=== PATIENT | male | born 1960 | race Caucasian/White ===

== ENCOUNTER 2016-12-28 21:11 | Inpatient (IN) | payer BC, OTHER ==
[~2016-12-28] VITALS: Ht 182.9 cm; Wt 123.8 kg
--- NOTE | 2016-12-28 21:35 | NUR ---
PT PRESENTED TO THE ER WITH A C/O RLE EDEMA, PAIN ,REDNESS X 1WK. PT STATED THAT HE WENT TO HIS PMD 1 WK AGO AND HE GAVE HIM SOME PILLS. PT WAS NOT ABLE TO TELL ME THE NAME OF THE MEDICATION. PT STATED THAT THE WOUND BECAME WORSE 2 DAYS AGO. PT HAS DM TYPE2 AND IS ON METFORMIN. PT IS AA&O X4. PT IS AMBULATORY WITH A SLOW STEADY GAIT. PT'S LEG WOUND IS BANDAGED AND WEEPING. CLEAR DRAINAGE NOTED. PT WAS PLACED ON THE MONITOR AND CONTINOUS PULSE OX.
[2016-12-28] MEDS ORDERED: VANCOMYCIN 1 GM VIAL ONE (22:11)
[2016-12-28] MEDS ORDERED: IV SET PRIMARY PUMP SET 1 EA INFUS.SET MC ONE (22:11)
[2016-12-28] MEDS ORDERED: IV NS 0.9% 250 ML IV ONE (22:11)
--- NOTE | 2016-12-28 22:23 | NUR ---
CALLED NURSING SUP. FOR MS BED
--- NOTE | 2016-12-28 22:27 | NUR ---
PT GOING TO [facility] BED 311-1
[2016-12-28] MEDS ORDERED: VANCOMYCIN 1 GM in IV D5W 250 ML IV ONE (22:30)
[2016-12-28 22:37] LABS: CALCIUM, SERUM 8.4 mg/dL (8.5-10.1); CARBON DIOXIDE 27 mmol/L (21-32); CHLORIDE 102 mmol/L (98-107); CREATININE 1.2 mg/dL (0.6-1.3); GFR 62 mL/min (>60); GLUCOSE 194 mg/dL (74-106); POTASSIUM 3.4 mmol/L (3.5-5.1); SODIUM SERUM 140 mmol/L (136-145); UREA NITROGEN, BLOOD 11 mg/dL (7-18)
[2016-12-28 22:40] VITALS: BP 142/85
[2016-12-28 22:41] LABS: INR 0.93 (0.87-1.13); PROTHROMBIN TIME 9.9 SECS (9.5-12.7)
[2016-12-28 22:47] LABS: BASOPHILS % (AUTO) 0.4 % (0.0-2.0); EOSINOPHILS # (AUTO) 0.6 /CMM (0.0-0.7); HEMATOCRIT 41 % (39-51); HEMOGLOBIN 13.9 g/dL (13.5-17.5); LYMPHOCYTES # (AUTO) 2.8 /CMM (0.8-4.8); LYMPHOCYTES % (AUTO) 26.2 % (20.0-44.0); MEAN CORPUSCULAR HEMOGLOBIN 29 PG (26.0-33.0); MEAN CORPUSCULAR HGB CONC 34 g/dl (31.0-36.0); MEAN CORPUSCULAR VOLUME 84 fL (80-96); MONOCYTES # (AUTO) 0.6 /CMM (0.1-1.30); MONOCYTES % (AUTO) 5.6 % (2.0-12.0); NEUTROPHILS # (AUTO) 6.5 /CMM (1.8-8.9); NEUTROPHILS % (AUTO) 61.8 % (43.0-81.0); PLATELET COUNT (AUTO) 271 /CMM (150-450); RDW COEFFICIENT OF VARIATION 13.5 (11.5-15.0); RED BLOOD CELL COUNT(AUTO) 4.85 MIL/uL (4.5-6.0); WHITE BLOOD COUNT (AUTO) 10.6 K/uL (4.3-11.0)
[2016-12-28 22:49] LABS: LACTIC ACID 2.4 mmol/L (0.4-2.0)
--- NOTE | 2016-12-28 23:01 | NUR ---
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
[2016-12-28] MEDS ORDERED: MORPHINE SULFATE INJ 4 MG/ML DISP.SYRIN ONE (23:15)
[2016-12-28] MEDS ORDERED: ONDANSETRON HCL/PF 4 MG/2 ML VIAL ONE (23:15)
--- NOTE | 2016-12-28 23:17 | NUR ---
PT STATED THAT HIS PAIN WAS A 7-8/10. NEW ORDERS GIVEN BY DR. JANG.
[2016-12-28] MEDS ORDERED: ASPI81TA2 PO (23:21)
[2016-12-28] MEDS ORDERED: METF850T2 PO (23:21)
[2016-12-28] MEDS ORDERED: GABA-532 PO (23:26)
[2016-12-28] MEDS ORDERED: LOSA1TAB36 PO (23:26)
[2016-12-28 23:35] VITALS: BP 142/85
--- NOTE | 2016-12-28 23:35 | NUR ---
RN NOTES RECEIVED PT FROM ER WITH DX. CELLULITIS, A/OX4, NEPHEW AT BEDSIDE, ADMISSION INSTRUCTIONS WAS GIVEN, CALL LIGHT WITHIN ERACH, SIDERAILS UPX2 WILL CONTINUE TO MONITOR
[2016-12-29 00:50] LABS: BILIRUBIN,DIRECT 0.1 mg/dL (0.0-0.2); BILIRUBIN,TOTAL 0.5 mg/dL (0.2-1.0)
[2016-12-29 00:54] LABS: LACTIC ACID REFLEX 1.4 mmol/L (0.4-1.9)
[2016-12-29] MEDS ORDERED: MORPHINE SULFATE INJ 2 MG/ML DISP.SYRIN IV PRN (01:00)
[2016-12-29] MEDS ORDERED: MAG HYDROX/AL HYDROX/SIMETH 30 ML UDC PO PRN (01:00)
[2016-12-29] MEDS ORDERED: ONDANSETRON HCL/PF 4 MG/2 ML VIAL IVP PRN (01:00)
[2016-12-29] MEDS ORDERED: ZOLPIDEM TARTRATE 5 MG TABLET PO PRN (01:00)
[2016-12-29] MEDS ORDERED: HYDROCODONE/APAP 5/325MG 1 EACH TABLET PO PRN (01:00)
[2016-12-29] MEDS ORDERED: MAGNESIUM HYDROXIDE 30 ML UDC PO PRN (01:00)
[2016-12-29] MEDS ORDERED: ACETAMINOPHEN 325 MG TABLET PO PRN (01:00)
[2016-12-29] MEDS ORDERED: Z GUARD REMEDY 2 OZ OINT TP PRN (01:00)
[2016-12-29] MEDS ORDERED: VANCOMYCIN 1 GM VIAL ONE (04:24)
[2016-12-29] MEDS ORDERED: IV D5W 500 ML IV ONE (04:25)
[2016-12-29] MEDS ORDERED: IV NS 0.9% 250 ML IV ONE ×2 (04:59→07:05)
[2016-12-29] MEDS ORDERED: IV SET PRIMARY PUMP SET 1 EA INFUS.SET MC ONE (04:59)
[2016-12-29] MEDS ORDERED: VANCOMYCIN 1.25 GM in IV D5W 500 ML IV SCH ×2 (05:00→17:00)
--- NOTE | 2016-12-29 06:35 | NUR ---
RN NOTES AWAKE, MORNING CARE RENDERED, CALL LIGHT WITHIN REACH, SIDERAILS UPX2 PT. NEEDS ATTENDED
[2016-12-29] MEDS ORDERED: FEE PK DOSING 1 MIN EA MC ONE (07:06)
--- NOTE | 2016-12-29 07:15 | NUR ---
RN MS NOTES PATIENT IN BED, ASLEEP BUT EASILY AROUSABLE, DENIES PAIN OR DISCOMFORT AT THIS TIME, IV ATB INFUSING AND TOLERATING WELL, NEEDS ATTENDED AND MET, NO S/SX OF DISTRESS NOTED, SAFETY MEASURES IN PLACED, CALL LIGHT WITHIN REACH, WILL CONTINUE TO MONITOR.
[2016-12-29] MEDS ORDERED: PANTOPRAZOLE 40 MG TABLET.DR PO SCH (07:30)
[2016-12-29 08:00] VITALS: BP 108/73
[2016-12-29] MEDS ORDERED: ALBU18HF2 IH (08:24)
[2016-12-29] MEDS ORDERED: OMEG500C PO (08:24)
--- NOTE | 2016-12-29 10:09 | NUR ---
WOUND CARE CONSULT: PATIENT SEEN AND SKIN ASSESSMENT DONE. PATIENT ALERT, ORIENTED, INDEPENDENT WITH BED MOBILITY, AMBULATORY, IVETH 18, CONTINENT. SEE TODAY'S SKIN ASSESSMENT IN PCS ALONG WITH ALL RECOMMENDATIONS DISCUSSED WITH NURSING STAFF. MD IN AGREEMENT WITH PLAN OF CARE. Addendum: 12/29/16 at 1010 by JUAN C KERR WNDNU Amended: Links added.
[2016-12-29] MEDS ORDERED: CEPH-570 PO (10:22)
[2016-12-29] MEDS ORDERED: SULF1TAB48 PO (10:22)
--- NOTE | 2016-12-29 10:30 | NUR ---
RN MS NOTES PATIENT IN BED, FAMILY AT BEDSIDE, SEEN AND EXAMINED BY DR. PHAM, RECEIVED NEW ORDER FOR DISCHARGE AFTER LEVAQUIN DOSE TONIGHT, PATIENT AND FAMILY AWARE. PATIENT IN STABLE CONDITION, WOUND TREATMENT RENDERED, WILL CONTINUE TO MONITOR.
[2016-12-29] MEDS ORDERED: ASPIRIN 81 MG TAB.CHEW PO SCH (11:30)
[2016-12-29] MEDS ORDERED: LOSARTAN/HCTZ 50-12.5MG/ 1 EA TABLET PO SCH (11:31)
[2016-12-29] MEDS ORDERED: SECONDARY IV SET 1 EA INFUS.SET MC ONE (11:43)
[2016-12-29] MEDS: UREA 10% -AHA 4% CREAM 57 GM TUBE TP SCH ×2 (11:51→16:48)
[2016-12-29] MEDS ORDERED: PIPERACILLIN /TAZOBACTAM 3.375 G in IV D5W 50 ML IV SCH (12:00)
[2016-12-29] MEDS: GABAPENTIN 100 MG CAPSULE PO SCH ×2 (13:02→16:48)
[2016-12-29 16:00] VITALS: BP 114/76
[2016-12-29 16:05] VITALS: BP 114/76
[2016-12-29] MEDS ORDERED: METFORMIN 850 MG TABLET PO SCH (17:00)
--- NOTE | 2016-12-29 17:45 | NUR ---
RN MS NOTES IV VANCO INFUSING AND TOLERATING WELL, PATIENT IS IN STABLE CONDITION, RIGHT LEG ELEVATED, DENIES PAIN OR DISCOMFORT AT THIS TIME, ALL DUE MEDS GIVEN ORDERED, PATIENT RECEIVED DISCHARGE INSTRUCTIONS AND VERBALIZED UNDERSTANDING, PRESCRIPTION PROVIDED FOR TWO ORAL ANTIBIOTICS AND NORCO, EDUCATION PROVIDED, VALUABLE FORM SIGNED, SKIN ASSESSMENT DONE, PHOTOS FROM LAST NIGHT STILL VALID, NO CHANGES, CURRENTLY WAITING FOR IV ATB TO BE COMPLETED PRIOR TO DISCHARGE, WILL CONTINUE TO MONITOR.
--- NOTE | 2016-12-29 18:33 | NUR ---
RN MS NOTES PIV ON LEFT HAND REMOVED, SECURED WITH TAPE AND GAUZE TO MINIMIZE BLEEDING, PATIENT LEFT THE FACILITY IN STABLE CONDITION AT 1833 ACCOMPANIED BY SISTER.
== END 2016-12-29 18:35 | disposition home or self-care (01) | DRG 383 ==
LOC: ER 21:13 → MED 23:08
PROVIDERS: ADMIT Internal Medicine; ATTEND Internal Medicine
DX: L03.115 Cellulitis of right lower limb (principal); E11.40 Type 2 diabetes mellitus with diabetic neuropathy, unspecified; I10 Essential (primary) hypertension; Z79.84 Long term (current) use of oral hypoglycemic drugs; F17.210 Nicotine dependence, cigarettes, uncomplicated
CPT/HCPCS: 36415; 80048-TC; 82247-TC; 82248-TC; 82962-TC; 83605-TC; 85025-TC; 85730-TC; 87040-TC; 87081-TC; A4606; J2270; J2405; J2543; J3370; J7050; J7060; Z7610

== ENCOUNTER 2017-04-11 20:17 | Inpatient (IN) | payer OTHER ==
[~2017-04-11] VITALS: Ht 185.4 cm; Wt 81.6 kg
[~2017-04-11 20:17] MED LIST: ALBU18HF2 IH; ASPI81TA2 PO; CEPH-570 PO; GABA-532 PO; LOSA1TAB36 PO; METF850T2 PO; OMEG500C PO; SULF1TAB48 PO
--- NOTE | 2017-04-11 21:00 | NUR ---
PT A/OX4 BREATHING EFFORTLESSLY ON ROOM AIR, PT STATES HE HAS BEEN HVAING A WOUND ON HIS RIGHT LEG X 1 WEEK, PT STATES HE HAS BEEN TRYING TO PUT ANTIBIOTIC CREAM ON BUT IT IS JUST GETTING WORSE, PT LEG IS RED AND WARM TO TOUCH, PT ON MONITOR, IN GOWN, IV PLACED LABS DRAWN, MADE AWARE WILL CONTINUE TO MONITOR.
[2017-04-11] MEDS ORDERED: CEFTRIAXONE 1GM BAG (ER ONLY) 50 ML IV ONE (21:17)
--- NOTE | 2017-04-11 21:17 | NUR ---
CALLED NURSING SUP. FOR MS BED
[2017-04-11 21:24] LABS: BASOPHILS # (AUTO) 0.3 /CMM (0.0-0.2); BASOPHILS % (AUTO) 2.4 % (0.0-2.0); EOSINOPHILS # (AUTO) 0.6 /CMM (0.0-0.7); EOSINOPHILS % (AUTO) 5.6 % (0.0-6.0); HEMATOCRIT 45 % (39-51); LYMPHOCYTES # (AUTO) 2.4 /CMM (0.8-4.8); MEAN CORPUSCULAR HEMOGLOBIN 29 PG (26.0-33.0); MEAN CORPUSCULAR HGB CONC 34 g/dl (31.0-36.0); MEAN CORPUSCULAR VOLUME 85 fL (80-96); MONOCYTES # (AUTO) 0.5 /CMM (0.1-1.30); MONOCYTES % (AUTO) 4.4 % (2.0-12.0); NEUTROPHILS # (AUTO) 7.7 /CMM (1.8-8.9); NEUTROPHILS % (AUTO) 66.6 % (43.0-81.0); PLATELET COUNT (AUTO) 284 /CMM (150-450); RED BLOOD CELL COUNT(AUTO) 5.23 MIL/uL (4.5-6.0); WHITE BLOOD COUNT (AUTO) 11.5 K/uL (4.3-11.0)
--- NOTE | 2017-04-11 21:25 | NUR ---
XRAY IN ROOM
[2017-04-11] MEDS ORDERED: CEFTRIAXONE 1GM BAG (ER ONLY) 1 GM/50 ML PIGGYBACK IV ONE (21:30)
[2017-04-11] MEDS ORDERED: VANCOMYCIN 1 GM in IV D5W 250 ML IV ONE (21:30)
[2017-04-11] MEDS ORDERED: IV NS 0.9% 1,000 ML BAG IV ONE ×3 (21:30→22:30)
[2017-04-11 21:34] LABS: CALCIUM, SERUM 8.8 mg/dL (8.5-10.1); CARBON DIOXIDE 26 mmol/L (21-32); CHLORIDE 101 mmol/L (98-107); CREATININE 1.1 mg/dL (0.6-1.3); GLUCOSE 258 mg/dL (74-106); POTASSIUM 3.7 mmol/L (3.5-5.1); SODIUM SERUM 137 mmol/L (136-145); UREA NITROGEN, BLOOD 15 mg/dL (7-18)
[2017-04-11 21:40] LABS: ALANINE AMINOTRANSFERASE 60 U/L (12-78); ALBUMIN 3.7 g/dL (3.4-5.0); ALKALINE PHOSPHATASE 73 U/L (46-116); ASPARTATE AMINOTRANSFERASE 27 U/L (15-37); BILIRUBIN,DIRECT 0.1 mg/dL (0.0-0.2); BILIRUBIN,TOTAL 0.8 mg/dL (0.2-1.0); TOTAL PROTEIN, SERUM 7.3 g/dL (6.4-8.2)
[2017-04-11 21:41] LABS: INR 0.95 (0.87-1.13); PROTHROMBIN TIME 9.9 SECS (9.5-12.7)
[2017-04-11 21:42] LABS: TROPONIN I < 0.017 ng/mL (0.00-0.056)
[2017-04-11] MEDS ORDERED: VANCOMYCIN 1 GM VIAL ONE (21:44)
--- NOTE | 2017-04-11 22:18 | NUR ---
SPOKE TO VIDYA BLOUNT FROM ER REGARDING ABNORMAL EKG SHOWING PT TO BE TACHYCARDIC AND HAVING INVERTED T WAVES, CONFIRMED THAT PT WILL BE ADMITTED TO MED/SURG SERVICE WITH THIS RESULTS.
[2017-04-11 22:30] VITALS: BP 139/86
--- NOTE | 2017-04-11 22:30 | NUR ---
MS RN ADMITTING NOTE RECEIVED PT COMING FOR ER VIA [facility], PT IS AWAKE AND ALERT ORIENTED X3, RECENTLY RECEIVED PAIN MEDICATION IN THE ER AND PAIN IS UNDER CONTROL, RESPIRATIONS EVEN AND UNLABORED, ORDERS RECEIVED FORM DR PHAM WHO IS ADMITTING PT, WILL FOLLOW UP AND CONTINUE TO MONITOR CLOSELY.
[2017-04-11] MEDS ORDERED: ACETAMINOPHEN 650 MG/20.3 ML UDC NG PRN (23:00)
[2017-04-11] MEDS ORDERED: *INSULIN REGULAR(HUMULIN R)HUM 100 UNIT/ML VIAL SQ PRN (23:00)
[2017-04-11] MEDS ORDERED: BLOOD SUGAR DIAGNOSTIC 1 EACH STRIP IN SCH (23:00)
[2017-04-11] MEDS ORDERED: DEXTROSE 50%-WATER 50 ML DISP.SYRIN IV PRN (23:00)
[2017-04-11] MEDS ORDERED: INSULIN REGULAR, HUMAN 100 UNIT/ML 3 ML VIAL SQ PRN (23:00)
[2017-04-11] MEDS ORDERED: BLOOD SUGAR DIAGNOSTIC 1 EACH STRIP VI SCH (23:00)
[2017-04-11] MEDS ORDERED: HYDROCODONE/APAP 5/325MG 1 EACH TABLET PO PRN (23:00)
[2017-04-11] MEDS ORDERED: ZOLPIDEM TARTRATE 5 MG TABLET PO PRN (23:00)
[2017-04-11] MEDS ORDERED: PIPERACILLIN /TAZOBACTAM 3.375 G VIAL IV ONE (23:31)
[2017-04-11] MEDS ORDERED: INSULIN REGULAR, HUMAN 100 UNIT/ML 10 ML VIAL ONE (23:31)
[2017-04-11] MEDS: PIPERACILLIN /TAZOBACTAM 3.375 G in IV D5W 50 ML IV SCH (23:42)
--- NOTE | 2017-04-12 00:35 | NUR ---
RECEIVED A CALL FROM DR. PHAM GIVING ORDER OK TO TRANSFER PT TO DIFFERENT HOSPITAL AND CONTINUE CURRENT MEDICATIONS, HE INSTRUCTED TO WAIT FOR CALL FROM SHIFT SUPERVISOR RN FOR DETAILS. WILL CONTINUE TO MONITOR.
[2017-04-12] MEDS ORDERED: HYDROCODONE/APAP 5/325MG 1 EACH TABLET ONE (03:00)
[2017-04-12] MEDS ORDERED: PIPERACILLIN /TAZOBACTAM 3.375 G VIAL IV ONE (05:45)
[2017-04-12] MEDS: PIPERACILLIN /TAZOBACTAM 3.375 G in IV D5W 50 ML IV SCH (05:54)
--- NOTE | 2017-04-12 06:46 | NUR ---
MS RN CLOSING NOTE PT REMAINED STABLE DURING FIELD TECHNICAL SUPPORT CONSULTANT, NO SIGNIFICANT CHANGE IN CONDITION OBSERVED, PT OK TO BE TRANSFERRED PER DR PHAM TO [facility], WILL ENDORSE TO INCOMING NURSE FOR [facility].
--- NOTE | 2017-04-12 07:30 | NUR ---
MS/RN Patient received Patient received from slime plant operator helper. No needs at this time, right leg open to air, but noted to be draining fluid. Dry dressing applied. Call light within reach, will continue to monitor.
[2017-04-12 08:00] VITALS: BP 128/80
[2017-04-12] MEDS ORDERED: FEE PK DOSING 1 MIN EA MC ONE (08:36)
[2017-04-12] MEDS ORDERED: VANCOMYCIN 1.5 GM in IV D5W 500 ML IV SCH (09:00)
--- NOTE | 2017-04-12 09:22 | NUR ---
MS/data center solutions architect Pictures taken and placed in chart. Exit care prepared, chart copied. Dr Capps here to see patient.
[2017-04-12] MEDS ORDERED: ENOXAPARIN SODIUM 40 MG/0.4 ML DISP.SYRIN SQ SCH (10:00)
--- NOTE | 2017-04-12 10:20 | NUR ---
MS/garment finisher Patient discharged via ambulance to [facility]. All personal belongings with patient and signed for on belongings list. Report given to paramedics. Per receiving facility request, heplock to right hand left in place. No signs of any infiltration seen.
[2017-04-12] MEDS ORDERED: PIPERACILLIN /TAZOBACTAM 3.375 G in IV D5W 50 ML IV SCH (12:00)
== END 2017-04-12 12:21 | disposition short-term general hospital (02) | DRG 383 ==
LOC: ER 20:20 → MEDSG2 22:11
PROVIDERS: ADMIT Internal Medicine; ATTEND Internal Medicine
DX: L03.115 Cellulitis of right lower limb (principal); E11.40 Type 2 diabetes mellitus with diabetic neuropathy, unspecified; F17.210 Nicotine dependence, cigarettes, uncomplicated; I10 Essential (primary) hypertension; Z79.899 Other long term (current) drug therapy; Z82.49 Family history of ischemic heart disease and other diseases of the circulatory system; Z83.3 Family history of diabetes mellitus
CPT/HCPCS: 36415; 71010-TC; 80048-TC; 80076-TC; 82962-TC; 83605-TC; 84484-TC; 85025-TC; 85730-TC; 87040-TC; 87081-TC; A4606; A6403; J0696; J1815; J2543; J3370; J7030; J7050; J7060; Z7610

== ENCOUNTER 2019-05-14 22:05 | Emergency (ER) | payer OTHER ==
[~2019-05-14] VITALS: Ht 182.9 cm; Wt 117.9 kg
[~2019-05-14 22:05] MED LIST changes: +ASPI-1169 PO; -ASPI81TA2 PO; -CEPH-570 PO; +METF-441 PO; -METF850T2 PO; -SULF1TAB48 PO
[2019-05-14] MEDS ORDERED: LIDOCAINE 1%-EPI 1:100,000 20 ML VIAL ONE (22:29)
[2019-05-14] MEDS ORDERED: SODIUM BICARBONATE 5 ML VIAL ONE (22:32)
--- NOTE | 2019-05-14 22:35 | NUR ---
BIB FAMILY FOR EVALUATION OF LLE WOUND AND ACTIVE BLEEDING.
--- NOTE | 2019-05-14 22:48 | NUR ---
L MEDIAL ANKLE WOUND WAS SUTURED BY DR. CASTRO AT THE BED SIDE. PT TOLERATD THE PROCEDURE WELL.
--- NOTE | 2019-05-14 23:33 | NUR ---
GOOD WOUND CARE AND SKIN CARE ON LLE PROVIDED AND AREA COVERED W/ DD. NO BLEEDDING NOTED . SUTURES INTACT. Patient discharged to home in stable condition. Written and verbal after care instructions given. Patient verbalizes understanding of instruction and assisted to tjhe car with a w/c.
[2019-05-15] MEDS ORDERED: SODIUM BICARBONATE 5 ML VIAL TP ONE (00:30)
[2019-05-15] MEDS ORDERED: LIDOCAINE 1%-EPI 1:100,000 20 ML VIAL TP ONE (00:30)
[2019-05-15 00:58] VITALS: BP 153/96
== END 2019-05-14 23:33 | disposition home or self-care (01) ==
LOC: ER 22:13
DX: E11.622 Type 2 diabetes mellitus with other skin ulcer (principal); L97.329 Non-pressure chronic ulcer of left ankle with unspecified severity; I10 Essential (primary) hypertension; F17.200 Nicotine dependence, unspecified, uncomplicated; Z79.82 Long term (current) use of aspirin; Z79.84 Long term (current) use of oral hypoglycemic drugs; Z79.899 Other long term (current) drug therapy
CPT/HCPCS: 12001; 99283; A6403; J3490 ×2

== ENCOUNTER 2020-05-18 12:54 | Emergency (ER) | payer MEDICARE, OTHER ==
[~2020-05-18] VITALS: Ht 175.3 cm; Wt 111.6 kg
--- NOTE | 2020-05-18 13:00 | NUR ---
C/o right inguinal area pain 5/10 pain scale, x 3 days. Patient a/ox4, breathing even and unlabored, no sob noted, needs attended.
[2020-05-18] MEDS ORDERED: ONDANSETRON HCL/PF 4 MG/2 ML VIAL ONE (13:15)
[2020-05-18] MEDS ORDERED: MORPHINE SULFATE INJ 4 MG/ML DISP.SYRIN ONE (13:15)
[2020-05-18] MEDS ORDERED: PIPERACILLIN /TAZOBACTAM 3.375 G VIAL IV ONE (13:15)
[2020-05-18] MEDS ORDERED: IV NS 0.9% 500 ML BAG IV ONE (13:30)
[2020-05-18] MEDS ORDERED: ONDANSETRON HCL/PF 4 MG/2 ML VIAL IVP ONE (13:30)
[2020-05-18] MEDS ORDERED: PIPERACILLIN /TAZOBACTAM 3.375 G in IV D5W 50 ML IV ONE (13:30)
[2020-05-18] MEDS ORDERED: MORPHINE SULFATE INJ 2 MG/ML DISP.SYRIN IV ONE (13:30)
[2020-05-18 13:34] LABS: BASOPHILS # (AUTO) 0.1 /CMM (0.0-0.2); BASOPHILS % (AUTO) 0.6 % (0.0-2.0); EOSINOPHILS % (AUTO) 3.6 % (0.0-6.0); HEMATOCRIT 46 % (39-51); HEMOGLOBIN 15.3 g/dL (13.5-17.5); LYMPHOCYTES # (AUTO) 2.3 /CMM (0.8-4.8); LYMPHOCYTES % (AUTO) 18.7 % (20.0-44.0); MEAN CORPUSCULAR HGB CONC 33 g/dl (31.0-36.0); MEAN CORPUSCULAR VOLUME 85 fL (80-96); MONOCYTES # (AUTO) 0.7 /CMM (0.1-1.30); MONOCYTES % (AUTO) 5.8 % (2.0-12.0); NEUTROPHILS # (AUTO) 8.6 /CMM (1.8-8.9); NEUTROPHILS % (AUTO) 71.3 % (43.0-81.0); PLATELET COUNT (AUTO) 314 /CMM (150-450); RED BLOOD CELL COUNT(AUTO) 5.37 MIL/uL (4.5-6.0); WHITE BLOOD COUNT (AUTO) 12.1 K/uL (4.3-11.0)
[2020-05-18 13:42] LABS: CALCIUM, SERUM 9.3 mg/dL (8.5-10.1); CREATININE 0.8 mg/dL (0.6-1.3); POTASSIUM 3.8 mmol/L (3.5-5.1)
[2020-05-18 13:47] LABS: ALBUMIN 3.8 g/dL (3.4-5.0); BILIRUBIN,DIRECT 0.2 mg/dL (0.0-0.2); TOTAL PROTEIN, SERUM 7.5 g/dL (6.4-8.2)
--- NOTE | 2020-05-18 14:07 | NUR ---
Patient a/ox4, ambulatory with steady gait. No distress noted. IV removed. Catheter intact and site benign. Pressure and 4x4 applied to site. No bleeding noted.Patient discharged to home in stable condition. Written and verbal after care instructions given. Patient verbalizes understanding of instruction.
[2020-05-18 14:09] VITALS: BP 133/82
== END 2020-05-18 14:10 | disposition home or self-care (01) ==
LOC: ER 12:54
DX: K65.0 Generalized (acute) peritonitis (principal); E11.9 Type 2 diabetes mellitus without complications; I10 Essential (primary) hypertension; Z79.82 Long term (current) use of aspirin; Z79.899 Other long term (current) drug therapy; Z79.84 Long term (current) use of oral hypoglycemic drugs
CPT/HCPCS: 36415; 80048; 80076; 83605; 83690; 85025; 87040 ×2; 96365; 96375; 99284; A6253; J2270; J2405; J2543 ×2; J7040; J7060

== ENCOUNTER 2025-04-30 06:28 | Inpatient (IN) | payer MEDICARE, OTHER ==
[~2025-04-30] VITALS: Ht 188 cm; Wt 108.0 kg
[2025-04-30] MEDS ORDERED: VANCOMYCIN 1 GM VIAL ONE (06:50)
[2025-04-30] MEDS ORDERED: dexaMETHasone SOD PHOSPHATE 2 ML ONE (06:50)
[2025-04-30] MEDS ORDERED: ANESTHESIA TRAY IN PYXIS 1 EA TRAY MC ONE (06:50)
[2025-04-30] MEDS ORDERED: OXYMETAZOLINE HCL NASAL SPRAY 30 ML BOTTLE NS ONE (06:50)
[2025-04-30] MEDS ORDERED: LIDOCAINE 2%-EPI 1:100,000 30 ML VIAL ONE (06:51)
[2025-04-30] MEDS ORDERED: FENTANYL PF 250MCG/5ML AMPUL ONE (07:01)
[2025-04-30] MEDS ORDERED: ROCURONIUM BROMIDE 50 MG/5 ML ONE (07:01)
[2025-04-30] MEDS ORDERED: LABETALOL HCL IV 100MG VIAL ONE (07:43)
[2025-04-30] MEDS ORDERED: MIDAZOLAM HCL 2 MG/2ML VIAL ONE (10:10)
[2025-04-30] MEDS ORDERED: ONDANSETRON HCL/PF 4 MG/2 ML VIAL IV PRN (11:30)
[2025-04-30] MEDS ORDERED: ACETAMINOPHEN 325 MG TABLET PO PRN (11:30)
[2025-04-30 11:50] VITALS: BP 141/77; TEMP 98.1; O2SAT 94
[2025-04-30] MEDS ORDERED: MAGNESIUM HYDROXIDE 30 ML UDC PO PRN (14:00)
[2025-04-30] MEDS: HYDROMORPHONE 1 MG/1 ML DISP.SYRIN IV PRN (14:17)
[2025-04-30] MEDS: IV NS 0.9% 1,000 ML IV PRN (18:15)
[2025-04-30] MEDS: VANCOMYCIN 1 GM in IV D5W 250ml IV SCH (19:54)
[2025-04-30 20:00] VITALS: BP_SYST 121; BP_SYST 129; BP_DIAS 79; BP_DIAS 97; TEMP 98.1; O2SAT 97
[2025-05-01 06:41] LABS: PLATELET COUNT (AUTO) 227 K/uL (150-450); RED BLOOD CELL COUNT(AUTO) 4.75 MIL/uL (4.5-6.0); RED CELL DISTRIBUTION WIDTH 14.8 % (11.5-15.0); WHITE BLOOD COUNT (AUTO) 15.4 K/uL (4.3-11.0)
[2025-05-01 07:02] LABS: CALCIUM, SERUM 8.8 mg/dL (8.5-10.1); CREATININE 0.6 mg/dL (0.6-1.3); PHOSPHORUS 3.2 mg/dL (2.5-4.9); SODIUM SERUM 141.0 mmol/L (136-145); UREA NITROGEN, BLOOD 9.0 mg/dL (7-18)
[2025-05-01] MEDS: PANTOPRAZOLE 40 MG TABLET.DR PO SCH (07:57)
[2025-05-01 08:00] VITALS: BP 117/83; TEMP 97.8; O2SAT 96
== END 2025-05-01 12:10 | disposition home or self-care (01) | DRG 497 ==
LOC: DS 06:28 → MED 11:06
PROVIDERS: ADMIT Nurse Practitioner Family; ATTEND Nurse Practitioner Family
PROC: 0NSR0ZZ Reposition Maxilla, Open Approach (ICD-10-PCS; 2025-04-30)
PROC: 0N5T0ZZ Destruction of Right Mandible, Open Approach (ICD-10-PCS; 2025-04-30)
PROC: 09UQ07Z Supplement Right Maxillary Sinus with Autologous Tissue Substitute, Open Approach (ICD-10-PCS; 2025-04-30)
PROC: 0NUT07Z Supplement Right Mandible with Autologous Tissue Substitute, Open Approach (ICD-10-PCS; 2025-04-30)
PROC: 0NUR07Z Supplement Maxilla with Autologous Tissue Substitute, Open Approach (ICD-10-PCS; 2025-04-30)
PROC: 0NST04Z Reposition Right Mandible with Internal Fixation Device, Open Approach (ICD-10-PCS; 2025-04-30)
PROC: 0N5R0ZZ Destruction of Maxilla, Open Approach (ICD-10-PCS; principal; 2025-04-30 07:30)
DX: S02.40CK Maxillary fracture, right side, subsequent encounter for fracture with nonunion (principal); S02.69XK Fracture of mandible of other specified site, subsequent encounter for fracture with nonunion; S02.40DK Maxillary fracture, left side, subsequent encounter for fracture with nonunion; X58.XXXD Exposure to other specified factors, subsequent encounter; M27.2 Inflammatory conditions of jaws; E66.9 Obesity, unspecified; E11.9 Type 2 diabetes mellitus without complications; E78.5 Hyperlipidemia, unspecified; I10 Essential (primary) hypertension; J44.9 Chronic obstructive pulmonary disease, unspecified; Z87.891 Personal history of nicotine dependence; D16.4 Benign neoplasm of bones of skull and face; J32.0 Chronic maxillary sinusitis; Z82.49 Family history of ischemic heart disease and other diseases of the circulatory system
CPT/HCPCS: 36415; 71046; 80048-TC; 80053-TC; 82962-TC; 83735-TC; 84100-TC; 85025-TC; 85610-TC; A4217; A4223; C1713; G0378; J0360; J0461; J0690; J1100; J1171; J1885; J2250; J2704; J3010; J3373; J3490; J7030; J7060

== ENCOUNTER 2025-09-10 08:01 | Inpatient (IN) | payer MEDICARE, OTHER ==
[~2025-09-10] VITALS: Ht 188 cm; Wt 104.5 kg
[2025-09-10] MEDS ORDERED: FENTANYL PF 250MCG/5ML AMPUL ONE (10:38)
[2025-09-10] MEDS ORDERED: ROCURONIUM BROMIDE 50 MG/5 ML ONE (10:39)
[2025-09-10] MEDS ORDERED: LIDOCAINE 2%-EPI 1:100,000 30 ML VIAL ONE (10:53)
[2025-09-10] MEDS ORDERED: dexaMETHasone SOD PHOSPHATE 1 ML ONE (10:53)
[2025-09-10] MEDS ORDERED: VANCOMYCIN 1 GM VIAL ONE (10:53)
[2025-09-10] MEDS ORDERED: MIDAZOLAM HCL 2 MG/2ML VIAL ONE (14:05)
[2025-09-10 15:00] VITALS: BP 138/78; TEMP 97.5; O2SAT 98
[2025-09-10] MEDS ORDERED: ACETAMINOPHEN 325 MG TABLET PO PRN (15:00)
[2025-09-10 15:18] VITALS: BP 138/79; TEMP 97.8; O2SAT 95
[2025-09-10 15:33] VITALS: BP 138/78; TEMP 97.5; O2SAT 98
[2025-09-10 15:48] VITALS: BP 148/81; TEMP 97.5; O2SAT 98
[2025-09-10 16:03] VITALS: BP 144/90; TEMP 97.8; O2SAT 97
[2025-09-10] MEDS: IV NS 0.9% 1,000 ML IV PRN (17:09)
[2025-09-10] MEDS: HYDROMORPHONE 1 MG/1 ML DISP.SYRIN IV PRN (17:21)
[2025-09-10 20:00] VITALS: BP 111/61; TEMP 97.9; O2SAT 96
[2025-09-10] MEDS: VANCOMYCIN 1 GM in IV D5W 250ml IV SCH (22:37)
[2025-09-11 05:53] VITALS: O2SAT 98
[2025-09-11 09:31] VITALS: BP 115/77; TEMP 97.9; O2SAT 97
== END 2025-09-11 11:45 | disposition home or self-care (01) | DRG 908 ==
LOC: DS 08:01 → MED 15:33
PROVIDERS: ADMIT Internal Medicine; ATTEND Internal Medicine
PROC: 0NSV04Z Reposition Left Mandible with Internal Fixation Device, Open Approach (ICD-10-PCS; principal; 2025-09-10 10:25)
PROC: 0NBV0ZX Excision of Left Mandible, Open Approach, Diagnostic (ICD-10-PCS; principal; 2025-09-10 10:25)
PROC: 0NSR04Z Reposition Maxilla with Internal Fixation Device, Open Approach (ICD-10-PCS; principal; 2025-09-10 10:25)
PROC: 0NUV07Z Supplement Left Mandible with Autologous Tissue Substitute, Open Approach (ICD-10-PCS; principal; 2025-09-10 10:25)
PROC: 0N5R0ZZ Destruction of Maxilla, Open Approach (ICD-10-PCS; principal; 2025-09-10 10:25)
PROC: 0NST04Z Reposition Right Mandible with Internal Fixation Device, Open Approach (ICD-10-PCS; principal; 2025-09-10 10:25)
PROC: 0NPW07Z Removal of Autologous Tissue Substitute from Facial Bone, Open Approach (ICD-10-PCS; principal; 2025-09-10 10:25)
PROC: 09UQ07Z Supplement Right Maxillary Sinus with Autologous Tissue Substitute, Open Approach (ICD-10-PCS; principal; 2025-09-10 10:25)
PROC: 09UR07Z Supplement Left Maxillary Sinus with Autologous Tissue Substitute, Open Approach (ICD-10-PCS; principal; 2025-09-10 10:25)
PROC: 0NUR07Z Supplement Maxilla with Autologous Tissue Substitute, Open Approach (ICD-10-PCS; principal; 2025-09-10 10:25)
PROC: 0N5T0ZZ Destruction of Right Mandible, Open Approach (ICD-10-PCS; principal; 2025-09-10 10:25)
PROC: 0NUT07Z Supplement Right Mandible with Autologous Tissue Substitute, Open Approach (ICD-10-PCS; principal; 2025-09-10 10:25)
DX: T86.831 Bone graft failure (principal); S02.40CK Maxillary fracture, right side, subsequent encounter for fracture with nonunion; D16.4 Benign neoplasm of bones of skull and face; D16.5 Benign neoplasm of lower jaw bone; E11.9 Type 2 diabetes mellitus without complications; J32.0 Chronic maxillary sinusitis; E66.9 Obesity, unspecified; I10 Essential (primary) hypertension; S02.40DK Maxillary fracture, left side, subsequent encounter for fracture with nonunion; S02.609K Fracture of mandible, unspecified, subsequent encounter for fracture with nonunion; M27.2 Inflammatory conditions of jaws; Y83.2 Surgical operation with anastomosis, bypass or graft as the cause of abnormal reaction of the patient, or of later complication, without mention of misadventure at the time of the procedure; E78.5 Hyperlipidemia, unspecified; Z87.891 Personal history of nicotine dependence; Z82.49 Family history of ischemic heart disease and other diseases of the circulatory system; Z83.3 Family history of diabetes mellitus; X58.XXXD Exposure to other specified factors, subsequent encounter; Z68.29 Body mass index [BMI] 29.0-29.9, adult
CPT/HCPCS: 82962-TC; 88305-TC; 88311-TC; 94799-TC; A4217; A4223; A4338; C1713; G0378; J0360; J0461; J0690; J1100; J1171; J2250; J2704; J3010; J3373; J3490; J7030; J7050; J7060